=== PATIENT | male | born 1980 | race Caucasian/White ===

== ENCOUNTER 2016-11-24 07:25 | Day surgery (SDC) | payer OTHER ==
[~2016-11-24 07:25] MED LIST: Dexamethasone IV* 4 MG/ML 1 ML (4 MG) IV SLOW PU ONE; Famotidine IV* 10 MG/ML 2 ML (20 mg) IV ONE
[2016-11-24] MEDS ORDERED: Sodium Bicarbonate 8.4%* 50 ML SYRINGE ONE (07:44)
[2016-11-24] MEDS ORDERED: Lidocaine 1% INJ* 10 MG/ML 30 ML SDV ONE (07:45)
[2016-11-24] MEDS ORDERED: Bupivacaine 0.25% SDV* 30 ML ONE (08:01)
[2016-11-24 09:53] VITALS: BP 112/75
--- NOTE | 2016-11-25 01:03 | OP ---
DATE OF OPERATION: 11/24/16 - [facility] DATE OF : [birth year] SURGEON: Arnoldo Mckinley MD TRUCK HEADLIGHT ASSEMBLER: AMOS Lockett. ANESTHESIOLOGIST: None. ANESTHESIA: Local only with right thumb digital block with 1% lidocaine with bicarbonate followed by 0.25% Marcaine. PRE-OP DIAGNOSIS: Right thumb volar fingertip mass. POST-OP DIAGNOSIS: Right thumb volar fingertip mass. OPERATIVE PROCEDURE: Excision of the right thumb fingertip mass, 5 mm in diameter. INDICATION: Darnell is a 36-year-old male who noticed a right thumb fingertip mass /nodule that was bothering him when he would use the thumb. It was sensitive to the touch. We had taken some x-rays and we had talked to him about risks and benefits and he would like to proceed with excision of the mass. ESTIMATED BLOOD LOSS: 2 mL. COMPLICATIONS: None. FINDINGS: Yellow brown nodular mass, well circumscribed. DESCRIPTION OF PROCEDURE: Darnell was seen in the preoperative holding area. The correct site, side, and procedure were identified. We had time-out and then I anesthetized the thumb with 1% lidocaine with 1% plain lidocaine with bicarbonate. We then came back to the operating room where the arm was prepped and draped in the usual fashion and a formal time-out was performed. I began by reenforcing the digital block with a few more cc of 0.25% plain Marcaine. We then exsanguinated the finger with the Tourni-Cot. With the tourniquet in place, we went ahead and made a longitudinal incision in line with skin lines directly overlying the mass. Dissection was carried down sharply until the mass was encountered. We went ahead and performed a marginal excision of the mass using the Lyons blade. It came out in its entirety nice and cleanly. This was then handed off and sent to pathologist for examination. I went ahead and examined the wound for any further signs of a mass or for any additional pathology. It was nice and clean. So, we went ahead and irrigated out the wound and the skin was closed with two 5-0 nylon interrupted sutures. Tourni-Cot was then released. The thumb pinked up immediately. Wound was dressed with Xeroform, 1-inch Kyrie and Coban dressing. He has been taken to recovery room in stable condition. [id number]/[facility] #: [id number] NBA
== END 2016-11-24 09:55 | disposition home or self-care (01) ==
LOC: OREAST 07:25
PROVIDERS: ATTEND Orthopaedic Surgery Hand Surgery
DX: D21.11 Benign neoplasm of connective and other soft tissue of right upper limb, including shoulder (principal); Z87.891 Personal history of nicotine dependence
CPT/HCPCS: 88305; J2001

== ENCOUNTER 2018-03-30 13:52 | Emergency (ER) | payer OTHER ==
--- OUTSIDE RECORDS SUMMARY | 2018-03-30 14:49 | XMS REPORT ---
:1980 External Reference #:[id number] Author Organization [facility] Address [address] [place] [address] Phone [phone] Care Team Providers Name Role Phone Arnoldo Mckinley MD Care Team Information Pharmacognosy Teacher Unavailable Payers Type Date Identification Numbers Payment Provider Subscriber Commercial Expires: Policy Number: [id number] [employer] Student [facility] Darnell Dozier 2017 Group Number: [id number] [address] PayID: [id number] [place] [address] Commercial Policy Number: [id number] [facility]ell Do[facility] Group Number: [id number] [address] PayID: [id number] [place] [address] Problems Date Description Provider Status Onset: 11/16/2016 Localized superficial swelling of skin Arnoldo Mckinley MD Active Family History Date Family Member(s) Problem(s) Comments Father Unknown Mother Hypertension Siblings 2 2 sisters Social History Type Date Description Comments Marital Status Single Lives With Alone Occupation Teacher Cigarette Use Former Cigarette Smoker Smoked 3 per day for 16 years ETOH Use Occasionally consumes alcohol Smoking Patient is a former smoker Recreational Drug Use Denies Drug Use Daily Caffeine Consumes on average 2 cups of regular coffee per day Exercise Type/Frequency Exercises regularly Gym and running Allergies, Adverse Reactions, Alerts Date Description Reaction Status Severity Comments 11/16/2016 NKDA active Medications Medication Date Status Form Strength Qnty SIG Indications Ordering Provider Mandibular Active Device dear , G47.33 Kelly Advancement 018 please MD Elías Device evaluate and fabricate oral appliance for moderate sleep apnea Escitalopram Active Tablets 30mg qd Sarah, Diana Anne, DO Levothyroxine 00/00/0 Active Tablets 225mcg qd Nemo Smith, Vital Signs Date Vital Result Comment 03/30/2018 Height 70 inches 5'10" Weight 213.00 lb Heart Rate 60 /min BP Systolic Sitting 106 mmHg BP Diastolic Sitting 72 mmHg Respiratory Rate 14 /min O2 % BldC Oximetry 98 % BMI (Body Mass Index) 30.6 kg/m2 11/08/2017 Height 70 inches 5'10" Weight 200.12 lb Heart Rate 68 /min BP Systolic Sitting 130 mmHg BP Diastolic Sitting 76 mmHg Respiratory Rate 14 /min O2 % BldC Oximetry 98 % BMI (Body Mass Index) 28.7 kg/m2 Neck Circumference in inches 98 11/16/2016 Height 70 inches 5'10" Weight 210.00 lb BP Systolic 131 mmHg BP Diastolic 82 mmHg Respiratory Rate 15 /min Body Temperature 97.2 F Pain Level 6 BMI (Body Mass Index) 30.1 kg/m2 Results Test Date Test Result H/L Range Note Laboratory test 11/24/2016 Surgical Pathology SEE RESULT BELOW 1, 2 finding 1 [id number] 2 SEE RESULT BELOW Name: DARNELL DOZIER : [address]: Arnoldo Mckinley MD Acct: [id number] Unit: [id number] AGE: 36 Location: [facility] Re11/24/16 SEX: M Status: [place] SPEC: [id number] MARY KAY: 11/24/16-[address] [facility] [address]: Arnoldo Mckinley MD REQ: [id number] RECD: 11/24/16-1248 STATUS: SOUT _ ORDERED: LEVEL 4 COMMENTS: [id number] FINAL DIAGNOSIS Right thumb fingertip, excision: -- Giant cell tumor. PRE-OPERATIVE DIAGNOSIS Right thumb mass GROSS DESCRIPTION The specimen is received in formalin labeled, Excision Mass Right Thumb Fingertip, and consists of a 0.7 x 0.4 x 0.4 cm samuel irregular rubbery fibrous tissue fragment admixed with scant yellow-white fat. The specimen is inked, bisected and submitted entirely in one cassette. Signed (signature on file) Bailey Harrison MD 08/12 1144 END OF REPORT * ML=Testing performed at Main Lab DEPARTMENT OF PATHOLOGY, [address] [place] [address] Rodney Hidalgo M.D. Director [facility] # [id number] Procedures Date CPT Code Description Status 11/08/2017 85436 Sleep Study Unattended,HRT Rate,Oxygen Sat,Resp Completed Effort/Airflow 11/24/2016 78497 Excision Tumor,Soft Tissue Of Hand Or Finger Subq Completed 11/24/2016 95644 Excision Tumor,Soft Tissue Of Hand Or Finger Subq Completed Encounters Type Date Location Provider CPT E/M Dx Office Visit 11/08/2017 [facility] [address] R06.83 11:00a [facility] G47.50 R06.02 Office Visit 11/16/2016 2:30p [facility] [place] [address] R22.31 [facility] Plan of Care Future Appointment(s):08/01/2018 9:15 am - Kelly Mckinley MD at [facility]03/30/2018 - Kelly Mckinley MDG47.33 Obstructive sleep apnea (adult) (pediatric)New Medication:Mandibular Advancement DeviceFollow up:4 months , HST with device in yjefpX05.50 Parasomnia, unspecified
[2018-03-30] MEDS ORDERED: Cyclobenzaprine TAB* 10 MG PO ONE (15:33)
--- NOTE | 2018-03-30 15:43 | ED ---
Back Pain - HPI Summary HPI Summary: Patient is a 37-year-old otherwise healthy male presenting to the ED with left- sided upper back strain since Monday. He states he awoke with this strain and it has been constant since that time. However, Monday when he awoke he also developed some palpitations which she has never had before. Denies any chest pain, shortness of breath or cardiac history. Denies any radiation of pain. He continues to be able to ambulate and denies any foot drop, bladder or bowel dysfunction or pain directly over the spine. Denies any trauma or injury. He has never injured the back in the past. Denies history of kidney stones or urinary obstructive symptoms. He states the palpitations are intermittent, not worse or better with positioning or exertion. No history of anxiety. 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 - History of Current Complaint Chief Complaint: EDBackInjuryPain Stated Complaint: NECK/BACK/L ARM PAIN Time Seen by Provider: 03/30/18 15:12 Hx Obtained From: Patient Onset/Duration: Sudden Onset Onset/Duration: Started Days Ago Timing: Constant Back Pain Location: Is Discrete @ - left sided scapular pain Pain Intensity: 10 Pain Scale Used: 0-10 Numeric Character: Aching Aggravating Symptom(s): Movement Alleviating Symptom(s): Rest, Position Associated Signs And Symptoms: Positive: Negative. Negative: Swelling, Redness , Weakness, Numbness, Tingling, Abdominal Pain, Bladder Incontinence, Bowel Incontinence, Weight Loss, Pain with Weight Bearing - Risk Factors AAA Risk Factors: Negative TAD Risk Factors: Negative Cauda Equina Risk Factors: Negative Epidural Abscess Risk Factors: Negative - Allergies/Home Medications Allergies/Adverse Reactions: Allergies Allergy/AdvReac Type Severity Reaction Status Date / Time No Known Allergies Allergy Verified 03/30/18 14:00 PMH/Surg Hx/FS Hx/Imm Hx Previously Healthy: Yes Endocrine/Hematology History: Reports: Hx Thyroid Disease - ON DAILY MEDS Denies: Hx Diabetes Cardiovascular History: Denies: Hx Hypertension History: Denies: Hx Renal Disease Sensory History: Reports: Hx Contacts or Glasses - WILL WEAR GLASSES DAY OF SURGERY Opthamlomology History: Reports: Hx Contacts or Glasses - WILL WEAR GLASSES DAY OF SURGERY Psychiatric History: Reports: Hx Anxiety - ON DAILY MEDS, Hx Depression - Surgical History Surgery Procedure, Year, and Place: YOUNG CHILD Tonsils/adenoids. 2007 left knee [facility] Hx Anesthesia Reactions: No - Immunization History Hx Pertussis Vaccination: No Immunizations Up to Date: Yes Infectious Disease History: No Infectious Disease History: Denies: Traveled Outside the [place] in Last 30 Days - Social History Occupation: Employed Full-time Lives: With Family Alcohol Use: Weekly Alcohol Amount: 5 CANS/WEEK Hx Substance Use: No Substance Use Type: Reports: None Hx Tobacco Use: Yes Smoking Status (MU): Former Smoker Type: Cigarettes Amount Used/How Often: LESS THEN 1 PPD 20 YRS Have You Smoked in the Last Year: Yes Review of Systems Constitutional: Negative Negative: Fever, Chills, Fatigue, Skin Diaphoresis Negative: Palpitations, Chest Pain Negative: Shortness Of Breath, Cough Genitourinary: Negative Positive: no symptoms reported, see HPI Negative: Arthralgia, Myalgia Skin: Negative Neurological: Negative All Other Systems Reviewed And Are Negative: Yes Physical Exam Triage Information Reviewed: Yes Vital Signs On Initial Exam: Initial Vitals Temp Pulse Resp BP Pulse Ox 97.5 F 64 16 149/74 98 03/30/18 13:57 03/30/18 13:57 03/30/18 13:57 03/30/18 13:57 03/30/18 13:57 Vital Signs Reviewed: Yes Appearance: Positive: Well-Appearing, Well-Nourished Skin: Positive: Warm, Skin Color Reflects Adequate Perfusion Head/Face: Positive: Normal Head/Face Inspection Eyes: Positive: EOMI, SARAH, Conjunctiva Clear Neck: Positive: Supple, No Lymphadenopathy Respiratory/Lung Sounds: Positive: Clear to Auscultation, Breath Sounds Present Cardiovascular: Positive: RRR, Pulses are Symmetrical in both Upper and Lower Extremities Musculoskeletal: Positive: Pain @ - left scapular pain Neurological: Positive: Sensory/Motor Intact, Alert, Oriented to Person Place, Time Diagnostics - Vital Signs Vital Signs Temp Pulse Resp BP Pulse Ox 03/30/18 13:57 97.5 F 64 16 149/74 98 - Laboratory Result Diagrams: 03/30/18 15:53 03/30/18 15:53 Lab Statement: Any lab studies that have been ordered have been reviewed, and results considered in the medical decision making process. Back Pain Course/Dx - Course Course Of Treatment: On physical examination, there is tenderness just under the scapular region to the left side without posterior cervical thoracic lumbar spine tenderness. No palpitations noted. RRR. Lungs CTA. Patient appears well and nontoxic. He is ambulating well. EKG obtained which was normal sinus rhythm with no arrhythmias. Labs obtained which are all WNL except for a slightly elevated CK. He is given Flexeril and encouraged ibuprofen for back spasms. He is encouraged to follow-up with PCP. - Diagnoses Provider Diagnoses: Back muscle spasm Discharge - Sign-Out/Discharge Documenting (check all that apply): Patient Departure - Discharge Plan Condition: Stable Disposition: HOME Prescriptions: Cyclobenzaprine TAB* [Flexeril TAB*] 10 mg PO TID #12 tab Patient Education Materials: Muscle Spasm (ED) Referrals: [facility] Nasim HOLLIDAY [Primary Care Provider] - Additional Instructions: Ibuprofen 600mg three times daily Flexeril up to three times daily - for muscle relaxers - sometimes two per day is enough Do not drive or operate machinery with this medication Moist heat to the area If symptoms worsen, return to the ED - Billing Disposition and Condition Condition: STABLE Disposition: Home
[2018-03-30 16:26] LABS: ABS Basophils 0 10^3/ul (0-0.2); ABS Eosinophils 0.1 10^3/ul (0-0.6); ABS Lymphocytes 1.8 10^3/ul (1.0-4.8); ABS Monocytes 0.5 10^3/ul (0-0.8); ABS Neutrophils 5.8 10^3/ul (1.5-7.7); ABS Nucleated RBC 0 10^3/ul; Eosinophil % 1.2 % (0-6); Hematocrit 43 % (42-52); Hemoglobin 15.3 g/dl (14.0-18.0); Lymphocyte % 21.6 % (25-47); Mean Corpuscular HGB Conc 36 g/dl (31-36); Mean Corpuscular Hemoglobin 33 pg (27-31); Mean Corpuscular Volume 93 fL (80-94); Mean Platelet Volume 6.9 um3 (7.4-10.4); Nucleated Red Blood Cells % 0.1; Platelet Count 285 10^3/ul (150-450); Red Cell Distribution Width 13 % (10.5-15); White Blood Count 8.2 10^3/ul (3.5-10.8)
[2018-03-30 16:42] LABS: EGFR Non-African American 66.6 (>60)
[2018-03-30 17:51] VITALS: BP 114/59
== END 2018-03-30 17:50 | disposition home or self-care (01) ==
LOC: ED 13:52
DX: M79.602 Pain in left arm (principal); M62.830 Muscle spasm of back; Z87.891 Personal history of nicotine dependence
CPT/HCPCS: 36415; 80053; 82550; 84484; 85025; 93005; 99282; A9270-GY